=== PATIENT | male | born 1965 | race Hispanic/Latino ===

== ENCOUNTER 2017-07-06 14:32 | Emergency (ER) | payer OTHER ==
[2017-07-06 14:41] VITALS: BP 152/85; PULSE 64; TEMP 97.6; O2SAT 98
--- NOTE | 2017-07-06 14:50 | C.PDOC ---
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 Patient notes that he had to stop the cat after trying to attack his daughter. Patient washed the wound KENNEL TECHNICIAN. Denies fever, chills, or discharge. Time Seen by Provider: 07/06/17 14:43 Chief Complaint (Nursing): Abnormal Skin Integrity History Per: Patient History/Exam Limitations: no limitations Onset/Duration Of Symptoms: Hrs Current Symptoms Are (Timing): Still Present Quality Of Symptoms: Painful Severity: Mild Recent travel outside of the [place]: No Additional History Per: Patient - Animal Bite Description Of The Attack: Unprovoked Attack Description Of The Animal: Family Pet Reports Animal Appears: Well Reports Animal's Immunization Status: SCD Animal Control Notified: Yes Past Medical History Reviewed: Historical Data, Nursing Documentation, Vital Signs Vital Signs: Last Vital Signs Temp 97.6 F 07/06/17 14:38 Pulse 64 07/06/17 14:38 Resp 20 07/06/17 15:10 BP 152/85 H 07/06/17 14:38 Pulse Ox 98 07/06/17 14:51 Family History: States: Unknown Family Hx - Social History Hx Alcohol Use: No Hx Substance Use: No Review Of Systems Except As Marked, All Systems Reviewed And Found Negative. Constitutional: Negative for: Fever, Chills Skin: Positive for: Lesions (Multiple scratches to the face, hands, and arms.). Negative for: Other (Drainage) Physical Exam - Physical Exam Appears: Non-toxic, No Acute Distress Skin: Warm, Dry, Other (Multiple linear scratches to the face, hands, and arms. NO redness, swelling, drainage, or bleeding.) Head: Atraumatic, Normacephalic Neurological/Psych: Oriented x3 ED Course And Treatment O2 Sat by Pulse Oximetry: 98 (RA) Pulse Ox Interpretation: Normal Medical Decision Making Medical Decision Making: Plans: * Amoxicillin On reassessment, patient is resting comfortably, and is in no acute distress. Patient was instructed to follow up with physician/clinic in 1-2 days for further evaluation. Disposition Counseled Patient/Family Regarding: Diagnosis, Need For Followup, Rx Given - Disposition Disposition: HOME/ ROUTINE Disposition Time: 14:47 Condition: STABLE Additional Instructions: Follow up with your doctor. Return to the Emergency Department if there is drainage, pus, redness, significant pain or any other concern. Prescriptions: Amoxicillin/Clavulanate [Augmentin 875 MG-125 MG] 1 tab PO BID #28 tab Instructions: Laceration Without Closure (ED) Forms: [facility] (Kenyan), General Discharge Instructions - POA Present On Arrival: None - Clinical Impression Clinical Impression: Laceration, Cat scratch - Scribe Statement The provider has reviewed the documentation as recorded by the Tyloribnakia sanchez All medical record entries made by the Tyloribnakia were at my direction and personally dictated by me. I have reviewed the chart and agree that the record accurately reflects my personal performance of the history, physical exam, medical decision making, and the department course for this patient. I have also personally directed, reviewed, and agree with the discharge instructions and disposition.
[2017-07-06] MEDS ORDERED: Amoxicillin-Clav 875-125 mg Tab PO STA (14:51)
[2017-07-06] MEDS ORDERED: Amoxicillin-Clav 875-125 mg Tab PO ONE (14:59)
[2017-07-06 15:15] VITALS: RESP 20
== END 2017-07-06 15:23 | disposition home or self-care (01) ==
LOC: C.ER 14:32
DX: S01.81XA Laceration without foreign body of other part of head, initial encounter (principal); S61.411A Laceration without foreign body of right hand, initial encounter; W55.03XA Scratched by cat, initial encounter; Y93.89 Activity, other specified; Y92.009 Unspecified place in unspecified non-institutional (private) residence as the place of occurrence of the external cause

== ENCOUNTER 2017-12-13 13:15 | Emergency (ER) | payer OTHER ==
[2017-12-13 13:16] VITALS: BMI 33.6
[2017-12-13 13:21] VITALS: RESP 18
[2017-12-13 14:15] LABS: BASO # 0.1 K/uL (0.0-0.2); BASO % 0.7 % (0.0-2.0); EOS # 0.1 K/uL (0.0-0.7); EOS % 1.3 % (0.0-4.0); HEMOGLOBIN 14.9 g/dL (12.0-18.0); MEAN CELL VOLUME 86.1 fL (80.0-94.0); MEAN CORPUSCULAR HEMOGLOBIN 30.1 pg (27.0-31.0); MEAN PLATELET VOLUME 9.1 fL (7.2-11.7); MONO # 0.8 K/uL (0.0-0.8); MONO % 10.2 % (0.0-10.0); NEUT # 4.9 K/uL (1.8-7.0); NEUT % 62.8 % (50.0-75.0); NRBC % 0.1 % (0.0-2.0); RBC 4.96 Mil/uL (4.40-5.90); RED CELL DISTRIBUTION WIDTH 13.5 % (11.5-14.5); WHITE BLOOD COUNT 7.8 K/uL (4.8-10.8)
[2017-12-13 14:27] LABS: ALB/GLOB RATIO 1.1 (1.0-2.1); ALBUMIN 4.2 g/dL (3.5-5.0); ALT/SGPT 28 U/L (21-72); AST/SGOT 27 U/L (17-59); BLOOD UREA NITROGEN 14 mg/dL (9-20); CALCIUM 8.9 mg/dl (8.6-10.4); GFR AFRICAN-AMERICAN > 60; GFR NON-AFRICAN AMERICAN > 60; LIPASE 99 U/L (23-300)
--- NOTE | 2017-12-13 15:14 | C.PDOC ---
History Of Present Illness 51-year-old male, presents to the emergency department with complaints of mid- sternal chest pain, radiating to the left shoulder, described as tingling sensation that started at 12:00 this morning, while he was watching TV after he got home from work. Patient denies diaphoresis, nausea/vomiting, cough, congestion or abdominal pain. Currently the pain has resolved. Denies h/o anxiety. Of note, patient is not currently on any medications PMD: Liza Cheema MD. Time Seen by Provider: 12/13/17 13:35 Chief Complaint (Nursing): Chest Pain History Per: Patient History/Exam Limitations: no limitations Onset/Duration Of Symptoms: Hrs Current Symptoms Are (Timing): Still Present Severity: Moderate Past Medical History Reviewed: Historical Data, Nursing Documentation, Vital Signs Vital Signs: Last Vital Signs Temp 98 F 12/13/17 15:28 Pulse 87 12/13/17 15:28 Resp 18 12/13/17 15:28 BP 126/86 12/13/17 15:28 Pulse Ox 96 12/13/17 16:16 Family History: States: [place] (father 70s), Other Other Family History: mother breast canncer - Social History Hx Alcohol Use: Yes Hx Substance Use: No - Immunization History Hx Tetanus Toxoid Vaccination: No Hx Influenza Vaccination: No Hx Pneumococcal Vaccination: No Review Of Systems Constitutional: Negative for: Fever, Chills Cardiovascular: Positive for: Chest Pain. Negative for: Palpitations, Edema Respiratory: Negative for: Shortness of Breath Musculoskeletal: Positive for: Shoulder Pain Skin: Negative for: Rash Neurological: Negative for: Weakness, Numbness, Headache, Dizziness Physical Exam - Physical Exam Appears: Non-toxic, No Acute Distress Skin: Normal Color, Warm, Dry, No Rash Head: Atraumatic, Normacephalic Eye(s): bilateral: Normal Inspection, EOMI Ear(s): Bilateral: Normal Nose: Normal Oral Mucosa: Moist Lips: Normal Appearing Neck: Normal ROM, Supple Lymphatic: Normal Exam Chest: Symmetrical, No Tenderness Cardiovascular: Rhythm Regular Respiratory: Normal Breath Sounds, No Accessory Muscle Use Gastrointestinal/Abdominal: Soft, No Tenderness Extremity: Normal ROM, No Deformity, No Swelling Neurological/Psych: Oriented x3, Normal Speech ED Course And Treatment - Laboratory Results Result Diagrams: 12/13/17 14:12 12/13/17 14:12 ECG: Interpreted By Me, Viewed By Me ECG Rhythm: Sinus Rhythm ECG Interpretation: No Acute Changes Rate From EC O2 Sat by Pulse Oximetry: 96 (RA) Pulse Ox Interpretation: Normal Progress Note: EKG, bloodwork and Chest X-Ray ordered and reviewed. Patient treated with Aspirin PO. On re-evaluation, Patient is resting comfortably, doesnt have chest pain or shortness of breath. Patient has no risk factors for pulmonary emboli or DVT. Not tachycardic or hypoxic. Wells score 0. Clinical presentation is not suggestive of aortic dissection. Symptoms started 12 + hours ago, troponin negative. Patient is being discharged home and is being advised to follow up with physician/clinic in 1-2 days. Case discussed with Dr Cheema, states to discharge patient for outpatient f.u in office. Case discussed with Dr Davis agreed upon plan and discharge. Disposition - Disposition Referrals: Liza Cheema MD [Staff Provider] - Disposition: HOME/ ROUTINE Disposition Time: 15:13 Condition: STABLE Additional Instructions: Follow up with PMD in 1-2 days. Return to eR if symptoms persist or worsen. Instructions: Chest Pain Forms: [employer] (Arabic) - Clinical Impression Clinical Impression: Chest pain - Scribe Statement The provider has reviewed the documentation as recorded by the Scribe (Noa Roe) All medical record entries made by the Scribe were at my direction and personally dictated by me. I have reviewed the chart and agree that the record accurately reflects my personal performance of the history, physical exam, medical decision making, and the department course for this patient. I have also personally directed, reviewed, and agree with the discharge instructions and disposition.
[2017-12-13 15:29] VITALS: BP 126/86; PULSE 87; TEMP 98; O2SAT 96
--- NOTE | 2017-12-13 17:29 | RAD ---
HISTORY: SOB COMPARISON: No prior. TECHNIQUE: Chest PA and lateral FINDINGS: LUNGS: No active pulmonary disease. PLEURA: No significant pleural effusion identified. No pneumothorax apparent. CARDIOVASCULAR: Normal. OSSEOUS STRUCTURES: No significant abnormalities. VISUALIZED UPPER ABDOMEN: Normal. OTHER FINDINGS: None. IMPRESSION: No active disease.
--- NOTE | 2017-12-16 22:09 | CARD ---
APPROVED REPORT EKG Measurement Heart [id number] <Conclusion> Normal sinus rhythm Normal ECG
== END 2017-12-13 15:29 | disposition home or self-care (01) ==
LOC: C.ER 13:15
DX: R07.9 Chest pain, unspecified (principal)